=== PATIENT | male | born 1955 | race Caucasian/White ===

== ENCOUNTER 2019-06-03 12:43 | Outpatient (CLI) | payer OTHER, SELFPAY ==
[2019-06-03 13:40] LABS: Anion Gap 4.5 mmol/L (3-11); CO2 36.5 mmol/L (21.0-32.0); Calcium 8.7 mg/dL (8.5-10.1); Chloride 96 mmol/L (98-107); Estimated GFR 17.21 (mL/min/1.73m2); Glucose 139 mg/dL (70-100); Sodium 137 mmol/L (136-145)
[2019-06-03 13:56] LABS: BUN 95 mg/dL (7-18)
[2019-06-03 13:57] LABS: CREATININE 3.58 mg/dL (0.70-1.30)
[2019-06-03 14:16] LABS: Abs Immature Grans 0.01 k/cumm (0.0-0.09); Absolute Basophil Count 0.04 k/cumm (0.0-0.2); HCT 26.8 % (40.0-50.0); Immature Grans % 0.3; Lymphocytes % 8.2; Mean Corpuscular Volume 99.3 fL (80-95); RBC Distribution Width 17.6 % (11.8-14.1)
[2019-06-03 14:50] LABS: Absolute Eosinophil Count 0.26 k/cumm (0.0-0.7); Absolute Lymphocyte Count 0.31 k/cumm (1.2-3.4); Absolute Monocyte Count 0.41 k/cumm (0.11-0.7); Absolute Neutrophil Count 2.76 k/cumm (1.2-6.7); Basophils % 1.1; Eosinophils % 6.9; HGB 7.9 g/dL (13.5-17.5); Mean Corp. HGB Concentration 29.5 g/dL (32.0-36.0); Mean Corpuscular Hemoglobin 29.3 pg (27.0-33.0); Mean Platelet Volume 11.7 fL (8.0-11.0); Monocytes % 10.8; Neutrophils % 72.7; Platelet Count 34 x1000/uL (130-400); White Blood Cell Count 3.79 k/cumm (4.4-10.8)
== END 2019-06-03 13:03 ==
PROVIDERS: Visit Provider Nurse Practitioner Adult Health
DX: N18.9 Chronic kidney disease, unspecified (principal)
CPT/HCPCS: 36415; 80048; 85025